=== PATIENT | female | born 1975 | race Two or more races ===

== ENCOUNTER 2024-08-15 16:30 | Emergency (ER) | payer MEDICAID, SELFPAY ==
[2024-08-15 16:31] VITALS: BMI 32.2
[2024-08-15 16:56] VITALS: BP 130/87; PULSE 93; RESP 18; TEMP 37.2; O2SAT 99
--- NOTE | 2024-08-15 17:12 | XR_ITS ---
Examination: Abdomen sonogram, Limited Date and time of exam: August 15, 2024 at 1720 hrs. Indications: Epigastric pain beginning 4 hours ago Technique: Real-time sarah scale transabdominal sonographic images of the upper abdomen obtained. Findings: Normal gallbladder Normal common bile duct 0.3 cm Pancreatic head 3.1 cm Liver 15.9 cm fatty liver Normal hepatopedal portal venous flow Patent IVC Impression: Normal gallbladder Normal common bile duct Fatty liver
--- NOTE | 2024-08-15 17:13 | PD.EDRME ---
Rapid Medical Screening Exam RME Arrival date/time: 08/15/24 16:30 48-year-old female presents to the emergency department complains of abdominal pain nausea vomiting after eating seafood today Chief Complaint: Nausea/Vomiting/Diarrhea Time Seen by Provider: 08/15/24 16:54 Vital signs: Vital Signs Temperature 98.9 F 08/15/24 16:56 Pulse Rate 93 08/15/24 16:56 Respiratory Rate 18 08/15/24 16:56 Blood Pressure 130/87 H 08/15/24 16:56 Pulse Oximetry (%) 99 08/15/24 16:56 Oxygen Delivery Method Room Air 08/15/24 16:56
[2024-08-15] MEDS: LIDOCAINE VISCOUS 2% 15 ML UDC PO (17:28)
[2024-08-15] MEDS: MG HYD/AL HYD/SIME (Maalox Reg) SUSP 30 ML UDC PO (17:28)
[2024-08-15] MEDS: ONDANSETRON ODT 4 MG TABRAP PO (17:29)
[2024-08-15] MEDS: FAMOTIDINE 20 MG TABLET PO (17:38)
[2024-08-15 17:59] LABS: Basophils % (Auto) 0 % (0-2.5); Eosinophils % (Auto) 0 % (0-10); Hematocrit 41.1 % (36.0-46.0); Immature Granulocytes % (Auto) 0 % (0-0); Immature Granulocytes Auto 0.04 Thou/mm3 (0.00-0.00); Lymphocytes # (Auto) 0.9 Thou/mm3 (1.0-4.8); Lymphocytes % (Auto) 9 % (10-50); Mean Corpuscular HGB Conc 34.1 g/dl (31.0-37.0); Mean Corpuscular Hemoglobin 28.1 pg (25.0-35.0); Mean Corpuscular Volume 83 fL (80-100); Monocytes # (Auto) 0.3 Thou/mm3 (0.0-0.8); Monocytes % (Auto) 3 % (0-12); Neutrophils % (Auto) 88 % (37-80); Nucleated Red Blood Cell % 0 /100 WBC (0); Platelet Count 207 Thou/mm3 (140-440); RDW Standard Deviation 42.4 fL (36.4-46.3); Red Blood Count 4.98 Miln/mm3 (4.00-5.20); White Blood Count 10.3 Thou/mm3 (3.6-11.0)
[2024-08-15 18:20] LABS: Collection Type, Urine Clean Catch
[2024-08-15 18:22] LABS: Alanine Aminotransferase 24 U/L (10-49); Albumin, Serum 4.9 gm/dL (3.5-5.0); Albumin/Globulin Ratio 1.5 (1.2-2.2); Alkaline Phosphatase 102 U/L (46-116); Anion Gap 13 (7-16); Aspartate Amino Transferase 17 U/L (0-34); BUN/Creatinine Ratio 19 Ratio (12-20); Bilirubin,Total 0.4 mg/dL (0.3-1.2); Blood Urea Nitrogen 15 mg/dL (9-23); Calcium 9.6 mg/dL (8.3-10.6); Calcium (Corrected) 9.6 mg/dL (8.5-10.1); Carbon Dioxide 24.8 mMol/L (20.0-31.0); Chloride 103 mMol/L (98-107); Creatinine (Component) 0.8 mg/dL (0.6-1.3); Estimated Creatinine Clearance 77.7 mL/min (>60); Globulin 3.2 gm/dL (2.3-3.5); Glucose 186 mg/dL (74-106); Lipase 40 U/L (12-53); Osmolality,Calculated 287 (275-295); Potassium 3.7 mMol/L (3.4-5.1); Sodium 141 mMol/L (136-145); Total Protein 8.1 gm/dL (5.7-8.2); eGFR > 60 See Note
[2024-08-15 18:33] LABS: Bacteria,Urine Rare; Bilirubin,Urine Negative (Negative); Blood,Urine Trace (Negative); Clarity,Urine Clear (Clear/Hazy); Color,Urine Yellow (Lt Yel-Yel); Glucose, Urine Negative (Negative); Ketones,Urine 2+ (Negative); Leukocyte Esterase,Urine Positive (Negative); Nitrite,Urine Negative (Negative); Protein,Urine Trace (Neg - Trace); RBC,Urine 14 /hpf (0-3); Specific Gravity,Urine 1.027 (1.001-1.035); Squamous Epithelial Cell,Urine 7 /hpf (0-5); Urobilinogen,Urine Negative mg/dL (0.0-1.0); WBC,Urine 22 /hpf (0-5)
[2024-08-15 18:36] LABS: HCG Qualitative,Urine Negative
[2024-08-15 18:39] LABS: Culture Indicated,Urine Yes
--- NOTE | 2024-08-15 19:24 | PD.EDNV ---
Nausea/Vomit./Diarrhea-RME/HPI General Chief complaint: Nausea/Vomiting/Diarrhea Stated complaint: FOOD POISONING; N/V, CHILLS Time Seen by Provider: 08/15/24 16:54 Source: patient and family Arrival date/time: 08/15/24 16:30 48-year-old female with family at bedside presents emergency department complaining of abdominal cramping with vomiting and diarrhea that started earlier today after eating [place] food. Patient reports was feeling fine ate some [place] food had several episodes of vomiting which have now subsided but reports is now having diarrhea. Patient reports was given medication for nausea upon arrival and has no longer had any vomiting episodes. Patient reports pain has also subsided. Mode of arrival: ambulatory Limitations: no limitations RME / HPI RME / HPI Narrative: 08/15/24 16:30 48-year-old female presents to the emergency department complains of abdominal pain nausea vomiting after eating seafood today Related Data Previous Rx's ?Medication ?Instructions ?Recorded ibuprofen 600 mg tablet 600 mg PO Q6H #30 tabs 06/30/19 ciprofloxacin HCl 250 mg tablet 250 mg PO BID 3 days #6 tabs 08/15/24 (Cipro) ondansetron 4 mg disintegrating 4 mg PO Q8H PRN nausea and 08/15/24 tablet vomiting #10 tabs Allergies Allergy/AdvReac Type Severity Reaction Status Date / Time Penicillins Allergy Intermediate DIZZINESS,V Verified 08/15/24 16:34 OMITING Review of Systems Review of Systems Systems Reviewed: All systems reviewed, normal except as documented Constitutional Constitutional: Reports system reviewed and no additional complaints, except as documented, Denies body ache(s), Denies chills and Denies fever(s) Eyes Eyes: Reports system reviewed and no additional complaints, except as documented and Denies change in vision ENT Ears, Nose, Mouth, and Throat: Reports system reviewed and no additional complaints, except as documented, Denies disequilibrium, Denies dizziness, Denies sore throat and Denies vertigo Cardiovascular Cardiovascular: Reports system reviewed and no additional complaints, except as documented, Denies chest pain and Denies dyspnea Respiratory Respiratory: Reports system reviewed and no additional complaints, except as documented, Denies chest congestion, Denies cough and Denies dyspnea Gastrointestinal Gastrointestinal: Reports system reviewed and no additional complaints, except as documented, Reports abdominal pain, Reports diarrhea, Reports nausea and Reports vomiting Musculoskeletal Musculoskeletal: Reports system reviewed and no additional complaints, except as documented, Denies abnormal gait and Denies arthralgias Integumentary/Breasts Skin/Breast: Reports system reviewed and no additional complaints, except as documented, Denies erythema, Denies rash and Denies wounds Neurologic Neurologic: Reports system reviewed and no additional complaints, except as documented, Denies abnormal gait, Denies disequilibrium, Denies dizziness and Denies vertigo Past Medical History Social History SMOKING STATUS: Never smoker ED Exam General Limitations: Present no limitations General appearance: Present alert and in no apparent distress Head Head exam: Present atraumatic Eye Eye exam: Present normal appearance, PERRL and EOMI ENT ENT exam: Present normal exam, normal oropharynx and mucous membranes moist Neck Neck exam: Present normal inspection, full ROM and trachea midline Chest Chest inspection: Present normal inspection and symmetric chest wall rise Respiratory Respiratory exam: Present normal lung sounds bilaterally Cardiovascular Cardiovascular exam: Present regular rate, normal rhythm and normal heart sounds Abdominal Exam Abdominal exam: Present soft and normal bowel sounds; Absent tenderness, guarding, rebound, Baptiste's sign or tenderness at McBurney's Point Extremities Exam Extremities exam: Present normal inspection and full ROM Back Exam Back exam: Present normal inspection and full ROM Neurological Exam Neurological exam: Present alert, oriented X3 and CN II-XII intact Psychiatric Psychiatric exam: Present normal affect and normal mood Skin Skin exam: Present warm, dry, intact and normal color Course Quality Measures none Orders Category Date Time Status US gall bladder Stat Exams 08/15/24 17:12 Completed CBC Stat Lab 08/15/24 17:40 Completed Comprehensive Metabolic Panel Stat Lab 08/15/24 17:40 Completed HCG Qualitative,Urine Stat Lab 08/15/24 18:11 Completed Lipase Stat Lab 08/15/24 17:40 Completed UA, C/S IF [Urinalysis, C/S if Indicated] Stat Lab 08/15/24 18:11 Completed Urine Culture Stat Lab 08/15/24 18:11 Received Famotidine [Pepcid] Med 08/15/24 17:12 Discontinued 20 mg PO X1 ONE Lidocaine 2% Viscous [Xylocaine 2% Viscous] Med 08/15/24 17:12 Discontinued 15 ml PO X1 ONE Ondansetron Odt [Zofran Odt] Med 08/15/24 17:12 Discontinued 4 mg PO X1 ONE cefTRIAXone [Rocephin] 1,000 mg Med 08/15/24 19:25 Discontinued Lidocaine 1% 20 ml [Xylocaine 1% 20 ML] 2.1 ml IM X1 mg Hyd/Al Hyd/Michel Susp [Maalox Susp] Med 08/15/24 17:12 Discontinued 30 ml PO X1 ONE Vital Signs Vital signs: Vital Signs Temperature 98.9 F 08/15/24 16:56 Pulse Rate 93 08/15/24 16:56 Respiratory Rate 18 08/15/24 16:56 Blood Pressure 130/87 H 08/15/24 16:56 Pulse Oximetry (%) 99 08/15/24 16:56 Oxygen Delivery Method Room Air 08/15/24 16:56 99% room air within normal limits Nausea/Vomiting/Diarrhea MDM Narrative MDM Narrative:: 48-year-old female with family at bedside presents emergency department complaining of abdominal cramping with vomiting and diarrhea that started earlier today after eating [place] food. Patient reports was feeling fine ate some [place] food had several episodes of vomiting which have now subsided but reports is now having diarrhea. Patient reports was given medication for nausea upon arrival and has no longer had any vomiting episodes. Patient reports pain has also subsided. CBC was unremarkable for any leukocytosis. CMP was unremarkable for any elevated LFTs or gross electrolyte abnormalities with normal lipase. Urinalysis consistent with urinary tract infection patient does report occasional burning during urination. Ultrasound gallbladder was unremarkable. Patient appears nontoxic is hemodynamically stable with successful p.o. challenge. Patient reports pain has subsided and now she is just having diarrhea. Patient will be treated for urinary tract infection and also likely has gastroenteritis will instruct to encourage fluids advance diet as tolerated and take antibiotics as prescribed. Instructed to have follow-up with primary care provider return to emergency department for any worsening symptoms or as needed. Patient data External records reviewed:: [facility] previous records Clinical information provided by:: patient Social determinants that could affect healthcare access:: none Patient has the following chronic illnesses:: See chart How is presenting disease/condition affected by chronic disease/condition?: uneffected by Evaluation data The following diagnostics were reviewed and interpreted by me:: lab results and radiology exam(s) Lab and/or radiology exams considered but not ordered:: Ordered Interpretation Summary: Interpreted by me Medications / Prescriptions Medications / Prescriptions considered but not ordered:: Ordered Medication administrations:: Medication Administration History Discontinued Medications Al Hydrox/Mg Hydrox/Simethicone (Mg Hyd/Al Hyd/Michel (Maalox Reg) Susp 30 Ml Udc) 30 ml PO X1 ONE Stop: 08/15/24 17:13 Last Admin: 08/15/24 17:28 Dose: 30 ml Documented By: EO Ceftriaxone Sodium 1,000 mg/ (Lidocaine HCl 2.1 ml) 0 mg IM X1 ONE Stop: 08/15/24 19:26 Last Admin: 08/15/24 19:31 Dose: 1,000 mg Documented By: EO Comments: 2.1 ml Lido Famotidine (Famotidine 20 Mg Tablet) 20 mg PO X1 ONE Stop: 08/15/24 17:13 Last Admin: 08/15/24 17:38 Dose: 20 mg Documented By: EO Comments: Medicatio barcode not scanning Lidocaine HCl (Lidocaine Viscous 2% 15 Ml Udc) 15 ml PO X1 ONE Stop: 08/15/24 17:13 Last Admin: 08/15/24 17:28 Dose: 15 ml Documented By: EO Ondansetron HCl (Ondansetron Odt 4 Mg Tabrap) 4 mg PO X1 ONE; Protocol Stop: 08/15/24 17:13 Last Admin: 08/15/24 17:29 Dose: 4 mg Documented By: EO Given Consultations Consultation(s) initiated? (list below): No Diagnosis Nausea Differential Diagnosis: traveler's diarrhea, food poisoning, gastroenteritis, clostridium difficile infection, drug-induced nausea and vomiting and dehydration Most likely diagnosis given after review of the tests above:: UTI Gastroenteritis Admission Indicated Admission indicated?: not indicated Admission Request Was there a request for admission?: No Disposition Plan Disposition Plan: Discharge Discharge Attestation Discharge Attestation: The patient and all family members were given an opportunity to ask questions and understood the discharge instructions. Discharge instructions specifically effects, indications for sooner follow up or return to the emergency department, and the expected course of current diagnosis. Patient condition: Stable Discharge Plan Plan Patient Disposition: HOME (Self Care) Disposition Comment: Stable Prescriptions/Referrals Prescriptions/Med Rec: New ondansetron 4 mg tablet,disintegrating 4 mg PO Q8H PRN (Reason: nausea and vomiting) Qty: 10 0RF ciprofloxacin HCl [Cipro] 250 mg tablet 250 mg PO BID 3 Days Qty: 6 0RF No Action ibuprofen 600 mg tablet 600 mg PO Q6H Qty: 30 0RF Referrals: No Primary/Family,Physician [Primary Care Provider] - In 1 week Problem List Clinical Impression: UTI (urinary tract infection), Gastroenteritis Patient/Caregiver Discharge Instructions Discharge Activity: activity as tolerated Education Materials: ED Diet for Vomiting or ..., ED Gastroenteritis, Noninfectious, ED CYSTITIS Female Adult Additional Instructions: Drink plenty of fluids and get plenty of rest. Advance diet as tolerated start with clears advance to soft and then regular textured food. Take antibiotics as prescribed. Follow-up with primary care provider in 2 to 3 days. Return to emergency department for any worsening symptoms or as needed. Print Language: Turkmen Stand Alone Forms: Solange Award Info., Patient Portal Info Letter PA/PLANISHER Supervising Physician NOAM/OZZIE Supervising Physician: Dr. Bear
[2024-08-15] MEDS: cefTRIAXone 1,000 MG, LIDOCAINE 1% 20 ML 2.1 ML IM (19:31)
== END 2024-08-15 19:41 | disposition home or self-care (01) ==
PROVIDERS: Nurse Practitioner Primary Care; Emergency Provider Emergency Medicine
DX: K52.9 Noninfective gastroenteritis and colitis, unspecified (principal); N39.0 Urinary tract infection, site not specified; R10.13 Epigastric pain
CPT/HCPCS: 36415; 76705; 80053; 81001; 81025; 83690; 85025; 87086; 96372; 99284; J0696; J3490; Q0162; A9270

== ENCOUNTER → 2024-11-18 | Outpatient (CLI) | payer MEDICAID, SELFPAY ==
--- NOTE | 2024-11-18 13:30 | XR_ITS ---
Examination: Screening digital mammography, bilateral Computer aided detection 3-D breast Tomosynthesis, bilateral Date and time of exam: November 18, 2024 1309 hours Compared to mammograms dating to January 03, 2016 Indication: Screening Technique: Nonmagnified MLO, CC views of the breasts to been obtained, reconstructed from 3-D Tomosynthesis images. R2 computer aided detection program utilized for evaluation of suspicious masses and/or abnormal calcifications. 3-D Tomosynthesis images obtained. Findings: Scattered areas of fibroglandular density 8mm nodule indistinct margins 12:00 position right breast anterior depth Benign calcifications Impression: BI-RADS Category 0: Incomplete: Need additional imaging evaluation Recommend follow-up spot tomographic views of 8mm nodule 12:00 position right breast as well as right breast sonography to complete the workup
== END | disposition home or self-care (01) ==
LOC: CDIM 12:59
PROVIDERS: Referring Provider Physician Assistant; Visit Provider Physician Assistant
DX: Z12.31 Encounter for screening mammogram for malignant neoplasm of breast (principal); N63.15 Unspecified lump in the right breast, overlapping quadrants
CPT/HCPCS: 77063; 77067

== ENCOUNTER → 2025-05-05 | Outpatient (CLI) | payer MEDICAID, SELFPAY ==
--- NOTE | 2025-05-05 | XR_ITS ---
Examination: Shoulder, right, 3 views Technique: Shoulder AP internal rotation, AP external rotation, Y view shoulder, 3 views Exam date and time : 05/05/2025, 7:50 a.m. INDICATION: Pain on top of right shoulder for 6 days. No reported trauma or surgery. COMPARISON: None FINDINGS: There appears to be very mild osteoarthrosis at the acromioclavicular and glenohumeral joints without evidence for dislocation. No evidence for fracture or aggressive bone lesions. Small enthesophyte is present along the superolateral margin of the acromion. Otherwise, no significant soft tissue findings are detected in the region of the right shoulder. No evidence for calcific tendinosis of the rotator cuff. IMPRESSION: Very mild degenerative changes at the right shoulder with otherwise no evidence for acute abnormality, aggressive bone lesion or apparent soft tissue swelling.
== END | disposition home or self-care (01) ==
PROVIDERS: PCP Physician Assistant; Referring Provider Internal Medicine; Visit Provider Internal Medicine
DX: M25.511 Pain in right shoulder (principal)
CPT/HCPCS: 73030